=== PATIENT | female | born 1980 | race Caucasian/White ===

== ENCOUNTER 2018-01-08 21:47 | Emergency (ER) | payer OTHER, MEDICAID ==
[~2018-01-08] VITALS: Ht 147.3 cm; Wt 72.6 kg
[2018-01-08] MEDS ORDERED: LORAZEPAM1 MG PO (22:11)
[2018-01-08] MEDS ORDERED: GABAPENTIN800 MG PO (22:11)
[2018-01-08] MEDS ORDERED: 'CLONIDINE0.1 MG PO (22:12)
[2018-01-08] MEDS ORDERED: RISPERIDONE2 M2 PO (22:12)
[2018-01-08] MEDS ORDERED: BUSPIRONE HCL30 MG PO (22:12)
[2018-01-08] MEDS ORDERED: ATORVASTATIN CA40 M1 PO (22:13)
[2018-01-08] MEDS ORDERED: TRAZODONE50 MG PO (22:13)
[2018-01-08] MEDS ORDERED: VENLAFAXINE HY150 M2 PO (22:13)
== END 2018-01-08 23:31 | disposition home or self-care (01) ==
LOC: ED 21:47
DX: S93.491A Sprain of other ligament of right ankle, initial encounter (principal); F17.200 Nicotine dependence, unspecified, uncomplicated; Z88.2 Allergy status to sulfonamides; Z88.1 Allergy status to other antibiotic agents; Z88.6 Allergy status to analgesic agent; Z88.8 Allergy status to other drugs, medicaments and biological substances; Z79.899 Other long term (current) drug therapy; X58.XXXA Exposure to other specified factors, initial encounter; Y93.89 Activity, other specified; Y92.89 Other specified places as the place of occurrence of the external cause; Y99.8 Other external cause status

== ENCOUNTER 2022-12-16 13:25 | Emergency (ER) | payer OTHER ==
[~2022-12-16] VITALS: Ht 149.8 cm; Wt 68.5 kg
[~2022-12-16 13:25] MED LIST: 'CLONIDINE0.1 MG PO; ATORVASTATIN CA40 M1 PO; BUSPIRONE HCL30 MG PO; GABAPENTIN800 MG PO; LORAZEPAM1 MG PO; RISPERIDONE2 M2 PO; TRAZODONE50 MG PO; VENLAFAXINE HY150 M2 PO
[2022-12-16] MEDS ORDERED: MEDROL DOSEPAK4 MG PO (15:11)
[2022-12-16] MEDS ORDERED: ZANAFLEX4 M2 PO (15:11)
[2022-12-18] MEDS ORDERED: HYDROCODONE-AC1 EAC1 PO ×2 (15:08)
[2022-12-20] MEDS ORDERED: ROSUVASTATIN CA40 MG PO (12:35)
[2022-12-20] MEDS ORDERED: PERPHENAZINE4 M1 PO (12:38)
[2022-12-20] MEDS ORDERED: METFORMIN HYD1000 MG PO (12:39)
== END 2022-12-16 15:25 | disposition home or self-care (01) ==
LOC: ED 13:25
DX: S39.012A Strain of muscle, fascia and tendon of lower back, initial encounter (principal); Z88.2 Allergy status to sulfonamides; Z88.5 Allergy status to narcotic agent; Z88.8 Allergy status to other drugs, medicaments and biological substances; W01.0XXA Fall on same level from slipping, tripping and stumbling without subsequent striking against object, initial encounter; Y93.89 Activity, other specified; Y92.89 Other specified places as the place of occurrence of the external cause; Y99.8 Other external cause status

== ENCOUNTER 2022-12-18 10:35 | Emergency (ER) | payer OTHER ==
[~2022-12-18] VITALS: Ht 149.8 cm; Wt 68.5 kg
[~2022-12-18 10:35] MED LIST changes: +MEDROL DOSEPAK4 MG PO; +ZANAFLEX4 M2 PO
[2022-12-18 11:46] LABS: BASO % 0.3 % (0.0-1.0); EOS % 0.2 % (1.0-4.0); HEMATOCRIT 43.8 % (37.0-47.0); LYMPH # 1.7 10*3/uL (1.3-4.4); LYMPH % 17.8 % (27.0-41.0); MEAN CELL VOLUME 88.7 fl (81.0-99.0); MEAN CORPUSCULAR HGB 30.4 pg (27.0-31.0); MEAN CORPUSCULAR HGB CONC 34.2 g/dl (33.0-37.0); MEAN PLATELET VOLUME 9.6 fl (9.6-12.3); MONO # 0.3 10*3/uL (0.1-1.0); MONO % 3.2 % (3.0-9.0); NEUT # 7.5 10*3/uL (2.3-7.9); NEUT % 78.1 % (47.0-73.0); PLATELET COUNT AUTOMATED 214 10*3/uL (130-400); RED BLOOD COUNT 4.94 10*6/uL (4.10-5.10); RED CELL DISTRI WIDTH 11.9 % (0-14.5); WHITE BLOOD COUNT 9.6 10*3/uL (4.8-10.8)
[2022-12-18 12:01] LABS: BUN 18 mg/dl (9-23); CHLORIDE 98 mmol/L (98-107)
[2022-12-18] MEDS ORDERED: HYDROCODONE-AC1 EAC1 PO (15:08)
[2022-12-20] MEDS ORDERED: ROSUVASTATIN CA40 MG PO (12:35)
[2022-12-20] MEDS ORDERED: PERPHENAZINE4 M1 PO (12:38)
[2022-12-20] MEDS ORDERED: METFORMIN HYD1000 MG PO (12:39)
== END 2022-12-18 15:14 | disposition home or self-care (01) ==
LOC: ED 10:35
PROVIDERS: Internal Medicine
DX: S42.222A 2-part displaced fracture of surgical neck of left humerus, initial encounter for closed fracture (principal); Z88.2 Allergy status to sulfonamides; Z88.5 Allergy status to narcotic agent; Z88.8 Allergy status to other drugs, medicaments and biological substances; E11.65 Type 2 diabetes mellitus with hyperglycemia; E83.42 Hypomagnesemia; E11.40 Type 2 diabetes mellitus with diabetic neuropathy, unspecified; W01.0XXA Fall on same level from slipping, tripping and stumbling without subsequent striking against object, initial encounter; Y93.89 Activity, other specified; Y92.89 Other specified places as the place of occurrence of the external cause; Y99.8 Other external cause status

== ENCOUNTER 2022-12-24 01:08 | Inpatient (IN) | payer OTHER ==
[2022-12-20 12:51] VITALS: BP 111/65
[2022-12-24] VITALS (8 sets, daily range): BP systolic 121–153; BP diastolic 74–92
[~2022-12-24] VITALS: Ht 147.3 cm; Wt 68.5 kg
[~2022-12-24 01:08] MED LIST changes: +HYDROCODONE-AC1 EAC1 PO; +METFORMIN HYD1000 MG PO; +PERPHENAZINE4 M1 PO; +ROSUVASTATIN CA40 MG PO
[2022-12-24] MEDS ORDERED: HYDROCODONE-AC1 EAC1 PO (07:57)
[2022-12-24 14:27] LABS: BASO % 0.2 % (0.0-1.0); EOS # 0.1 10*3/uL (0.0-0.4); EOS % 0.5 % (1.0-4.0); HEMATOCRIT 32.3 % (37.0-47.0); LYMPH # 1.7 10*3/uL (1.3-4.4); LYMPH % 10.5 % (27.0-41.0); MEAN CELL VOLUME 93.1 fl (81.0-99.0); MEAN CORPUSCULAR HGB 30.3 pg (27.0-31.0); MEAN CORPUSCULAR HGB CONC 32.5 g/dl (33.0-37.0); MEAN PLATELET VOLUME 9.3 fl (9.6-12.3); MONO # 0.5 10*3/uL (0.1-1.0); MONO % 3.4 % (3.0-9.0); NEUT # 13.5 10*3/uL (2.3-7.9); NEUT % 84.5 % (47.0-73.0); PLATELET COUNT AUTOMATED 258 10*3/uL (130-400); RED BLOOD COUNT 3.47 10*6/uL (4.10-5.10); RED CELL DISTRI WIDTH 12.4 % (0-14.5)
[2022-12-24 14:35] LABS: ALKALINE PHOSPHATASE 82 U/L (46-116); BUN 24 mg/dl (9-23); CHLORIDE 107 mmol/L (98-107); POTASSIUM 4.4 mmol/L (3.4-5.1); SGPT/ALT 15 U/L (10-49); TOTAL PROTEIN 5.7 gm/dL (6.0-8.0)
[2022-12-24] MEDS ORDERED: LISINOPRIL10 M1 PO (14:48)
[2022-12-24] MEDS ORDERED: OZEMPIC0.25 MG/01 SQ (14:48)
[2022-12-24] MEDS ORDERED: NOVOLOG FL100 UNIT/2 SQ (14:49)
[2022-12-24] MEDS ORDERED: LANTUS SOL100 UNIT/1 SC (14:50)
[2022-12-24] MEDS ORDERED: PRILOSEC20 M1 PO (21:13)
[2022-12-25] VITALS: BP 143/90
[2022-12-25 03:28] LABS: BILIRUBIN Negative (Negative); BLOOD Negative (Negative); CLARITY Clear (Clear); COLOR Yellow (Yellow); GLUCOSE 2+ (Negative); KETONE Negative (Negative); LEUKO ESTERASE Negative (Negative); NITRITE Negative (Negative); PH 5.5 (4.5-8.0); SPECIFIC GRAVITY 1.015 (1.001-1.030)
[2022-12-25 03:44] LABS: WBC 0-2 wbc/hpf (0-5)
[2022-12-25 05:30] LABS: CHLORIDE 102 mmol/L (98-107); CHOLESTEROL 112 mg/dL (<200); FREE T4 1.75 ng/dl (0.89-1.76); LDL CHOLESTEROL 28 mg/dL (9-159); POTASSIUM 4.3 mmol/L (3.4-5.1); THYROID STIM HORMONE (HS) 0.628 uIU/ml (0.550-4.780); TRIGLYCERIDES 215 mg/dl (<150)
[2022-12-25 05:34] LABS: BUN 12 mg/dl (9-23)
[2022-12-25 06:26] LABS: BASO % 0.1 % (0.0-1.0); EOS # 0.1 10*3/uL (0.0-0.4); EOS % 0.4 % (1.0-4.0); LYMPH # 2.1 10*3/uL (1.3-4.4); LYMPH % 13.4 % (27.0-41.0); MEAN CELL VOLUME 91.9 fl (81.0-99.0); MEAN CORPUSCULAR HGB 30.4 pg (27.0-31.0); MEAN CORPUSCULAR HGB CONC 33.1 g/dl (33.0-37.0); MEAN PLATELET VOLUME 9.4 fl (9.6-12.3); MONO # 1.3 10*3/uL (0.1-1.0); MONO % 7.9 % (3.0-9.0); NEUT # 12.3 10*3/uL (2.3-7.9); NEUT % 77.5 % (47.0-73.0); PLATELET COUNT AUTOMATED 281 10*3/uL (130-400); RED BLOOD COUNT 3.81 10*6/uL (4.10-5.10); RED CELL DISTRI WIDTH 12.4 % (0-14.5); WHITE BLOOD COUNT 15.9 10*3/uL (4.8-10.8)
[2022-12-25 06:56] LABS: VITAMIN D, 25-HYDROXY 13.5 ng/mL (30-100)
[2022-12-25 08:00] VITALS: BP 145/65; BP 158/78
[2022-12-25] MEDS ORDERED: VITAMIN D350 MC2 PO (11:53)
[2022-12-25] MEDS ORDERED: LANTUS SOL100 UNIT/1 SC (11:53)
[2022-12-25] MEDS ORDERED: HYDROCODONE-AC1 EAC1 PO ×2 (11:53)
[2022-12-25 12:00] VITALS: BP 124/68
== END 2022-12-25 14:15 | disposition home or self-care (01) | DRG 493 ==
LOC: SDC 01:08 → 4E 13:32
PROVIDERS: Registered Nurse; ADMIT Student in an Organized Health Care Education/Training Program; ATTEND Student in an Organized Health Care Education/Training Program
PROC: 0PSD04Z Reposition Left Humeral Head with Internal Fixation Device, Open Approach (ICD-10-PCS; principal; 2022-12-24)
PROC: 3E0T3BZ Introduction of Anesthetic Agent into Peripheral Nerves and Plexi, Percutaneous Approach (ICD-10-PCS; 2022-12-24)
PROC: 3E0T33Z Introduction of Anti-inflammatory into Peripheral Nerves and Plexi, Percutaneous Approach (ICD-10-PCS; 2022-12-24)
DX: S42.222A 2-part displaced fracture of surgical neck of left humerus, initial encounter for closed fracture (principal); E44.0 Moderate protein-calorie malnutrition; G89.18 Other acute postprocedural pain; I10 Essential (primary) hypertension; E78.00 Pure hypercholesterolemia, unspecified; F41.9 Anxiety disorder, unspecified; K21.9 Gastro-esophageal reflux disease without esophagitis; F31.9 Bipolar disorder, unspecified; E78.5 Hyperlipidemia, unspecified; E11.65 Type 2 diabetes mellitus with hyperglycemia; F17.210 Nicotine dependence, cigarettes, uncomplicated; F41.1 Generalized anxiety disorder; F20.9 Schizophrenia, unspecified; Z88.2 Allergy status to sulfonamides; Z88.8 Allergy status to other drugs, medicaments and biological substances; Z88.6 Allergy status to analgesic agent; Z90.710 Acquired absence of both cervix and uterus; Z82.49 Family history of ischemic heart disease and other diseases of the circulatory system; Z81.8 Family history of other mental and behavioral disorders; Z68.31 Body mass index [BMI] 31.0-31.9, adult

== ENCOUNTER → 2023-01-10 | Outpatient (CLI) | payer OTHER ==
[~2023-01-10] MED LIST changes: +LANTUS SOL100 UNIT/1 SC; +LISINOPRIL10 M1 PO; +NOVOLOG FL100 UNIT/2 SQ; +OZEMPIC0.25 MG/01 SQ; +PRILOSEC20 M1 PO; +VITAMIN D350 MC2 PO
== END | disposition home or self-care (01) ==
LOC: ORTHO 00:05
PROVIDERS: ATTEND Orthopaedic Surgery
DX: S42.222D 2-part displaced fracture of surgical neck of left humerus, subsequent encounter for fracture with routine healing (principal); X58.XXXD Exposure to other specified factors, subsequent encounter

== ENCOUNTER → 2023-01-29 | Outpatient (CLI) | payer OTHER ==
[~2023-01-29] MED LIST changes: +CLINDAMYCIN HC300 MG PO
== END | disposition home or self-care (01) ==
LOC: ORTHO 00:38
PROVIDERS: ATTEND Orthopaedic Surgery
DX: S42.222D 2-part displaced fracture of surgical neck of left humerus, subsequent encounter for fracture with routine healing (principal); X58.XXXD Exposure to other specified factors, subsequent encounter

== ENCOUNTER → 2023-01-30 | Day surgery (SDC) | payer OTHER ==
[2023-01-29 14:27] VITALS: BP 140/96
[2023-01-29 15:27] LABS: BUN 14 mg/dl (9-23); CHLORIDE 99 mmol/L (98-107); POTASSIUM 3.9 mmol/L (3.4-5.1)
[2023-01-30] VITALS (9 sets, daily range): BP systolic 113–159; BP diastolic 53–100
[~2023-01-30] VITALS: Ht 147.3 cm; Wt 64.4 kg
[2023-01-31 11:07] LABS: ACID FAST SPEC PROCESSING Tissue Grinding (.)
== END | disposition home or self-care (01) ==
LOC: SDC 01-29 14:00
PROVIDERS: ATTEND Orthopaedic Surgery
DX: T81.49XA Infection following a procedure, other surgical site, initial encounter (principal); S42.222D 2-part displaced fracture of surgical neck of left humerus, subsequent encounter for fracture with routine healing; I10 Essential (primary) hypertension; M79.7 Fibromyalgia; E11.40 Type 2 diabetes mellitus with diabetic neuropathy, unspecified; F41.9 Anxiety disorder, unspecified; F32.A Depression, unspecified; F20.9 Schizophrenia, unspecified; F17.210 Nicotine dependence, cigarettes, uncomplicated; Z88.1 Allergy status to other antibiotic agents; Z88.5 Allergy status to narcotic agent; Z88.8 Allergy status to other drugs, medicaments and biological substances; X58.XXXD Exposure to other specified factors, subsequent encounter

== ENCOUNTER → 2023-02-14 | Outpatient (CLI) | payer OTHER | END | disposition home or self-care (01) | LOC: ORTHO 09:26 | PROVIDERS: ATTEND Orthopaedic Surgery | DX: S42.222D 2-part displaced fracture of surgical neck of left humerus, subsequent encounter for fracture with routine healing (principal); X58.XXXD Exposure to other specified factors, subsequent encounter ==

== ENCOUNTER → 2023-03-06 | Day surgery (SDC) | payer OTHER ==
[2023-03-05 10:14] VITALS: BP 155/105
[2023-03-05 11:22] LABS: BUN 8 mg/dl (9-23); CHLORIDE 102 mmol/L (98-107); POTASSIUM 3.8 mmol/L (3.4-5.1)
[~2023-03-06] VITALS: Ht 147.3 cm; Wt 64.4 kg
[~2023-03-06] MED LIST changes: +CEPHALEXIN500 M1 PO
[2023-03-06 09:30] VITALS: BP 154/94
[2023-03-06 11:35] VITALS: BP 128/77
[2023-03-06 11:50] VITALS: BP 163/94
[2023-03-06 12:10] VITALS: BP 150/89
[2023-03-07 12:07] LABS: ACID FAST SPEC PROCESSING Tissue Grinding (.)
== END | disposition home or self-care (01) ==
LOC: SDC 03-05 10:00
PROVIDERS: ATTEND Orthopaedic Surgery
DX: T81.49XA Infection following a procedure, other surgical site, initial encounter (principal); I10 Essential (primary) hypertension; E11.40 Type 2 diabetes mellitus with diabetic neuropathy, unspecified; M79.7 Fibromyalgia; F17.210 Nicotine dependence, cigarettes, uncomplicated; F31.9 Bipolar disorder, unspecified; F41.9 Anxiety disorder, unspecified; E78.00 Pure hypercholesterolemia, unspecified; Y83.8 Other surgical procedures as the cause of abnormal reaction of the patient, or of later complication, without mention of misadventure at the time of the procedure

== ENCOUNTER 2023-04-06 10:39 | Emergency (ER) | payer OTHER ==
[~2023-04-06] VITALS: Ht 152.4 cm; Wt 68.0 kg
[2023-04-06] MEDS ORDERED: PERCOCET 5-3251 EACH PO (11:45)
[2023-04-06] MEDS ORDERED: HYDROCODONE-AC1 EAC1 PO (13:16)
== END 2023-04-06 12:13 | disposition home or self-care (01) ==
LOC: ED 10:39
DX: S92.355A Nondisplaced fracture of fifth metatarsal bone, left foot, initial encounter for closed fracture (principal); F17.210 Nicotine dependence, cigarettes, uncomplicated; Z88.2 Allergy status to sulfonamides; Z88.1 Allergy status to other antibiotic agents; Z88.8 Allergy status to other drugs, medicaments and biological substances; Z91.018 Allergy to other foods; Z79.899 Other long term (current) drug therapy; Z90.710 Acquired absence of both cervix and uterus; Z90.49 Acquired absence of other specified parts of digestive tract; W18.39XA Other fall on same level, initial encounter; Y93.89 Activity, other specified; Y92.89 Other specified places as the place of occurrence of the external cause; Y99.8 Other external cause status

== ENCOUNTER → 2023-04-30 | Outpatient (CLI) | payer OTHER ==
[~2023-04-30] MED LIST changes: +PERCOCET 5-3251 EACH PO
== END | disposition home or self-care (01) ==
LOC: ORTHO 00:56
PROVIDERS: ATTEND Orthopaedic Surgery
DX: S42.222D 2-part displaced fracture of surgical neck of left humerus, subsequent encounter for fracture with routine healing (principal); X58.XXXD Exposure to other specified factors, subsequent encounter

== ENCOUNTER → 2023-11-03 | Outpatient (CLI) | payer OTHER | END | disposition home or self-care (01) | LOC: MAMMO 01:20 | PROVIDERS: ATTEND Family Medicine | DX: Z12.31 Encounter for screening mammogram for malignant neoplasm of breast (principal) ==

== ENCOUNTER → 2023-11-05 | Outpatient (CLI) | payer OTHER | END | disposition home or self-care (01) | LOC: ORTHO 01:14 | PROVIDERS: ATTEND Orthopaedic Surgery | DX: S42.222D 2-part displaced fracture of surgical neck of left humerus, subsequent encounter for fracture with routine healing (principal); X58.XXXD Exposure to other specified factors, subsequent encounter ==

== ENCOUNTER 2023-11-22 15:42 | Emergency (ER) | payer OTHER ==
[~2023-11-22] VITALS: Ht 147.3 cm; Wt 61.2 kg
[~2023-11-22 15:42] MED LIST changes: -OZEMPIC0.25 MG/01 SQ; +OZEMPIC1 MG/0.71 SQ
[2023-11-22] MEDS ORDERED: ATIVAN0.5 MG PO (15:51)
[2023-11-22] MEDS ORDERED: THORAZINE100 MG PO (15:53)
[2023-11-22 16:25] LABS: BILIRUBIN Negative (Negative); BLOOD 1+ (Negative); CLARITY Cloudy (Clear); COLOR Yellow (Yellow); GLUCOSE Negative (Negative); KETONE Trace (Negative); LEUKO ESTERASE Negative (Negative); NITRITE Negative (Negative); UROBILINOGEN 0.2 E.U./dl (0.0-1.0)
[2023-11-22 17:07] LABS: BACTERIA 1+; RBC 0-2 rbc/hpf (0-2); WBC 0-2 wbc/hpf (0-5)
[2023-11-22 17:27] LABS: BASO # 0.1 10*3/uL (0.0-0.1); BASO % 0.5 % (0.0-1.0); EOS # 0.3 10*3/uL (0.0-0.4); EOS % 2.6 % (1.0-4.0); HEMATOCRIT 45.5 % (37.0-47.0); LYMPH # 3.1 10*3/uL (1.3-4.4); LYMPH % 29.2 % (27.0-41.0); MEAN CELL VOLUME 89.7 fl (81.0-99.0); MEAN CORPUSCULAR HGB 30.2 pg (27.0-31.0); MEAN CORPUSCULAR HGB CONC 33.6 g/dl (33.0-37.0); MEAN PLATELET VOLUME 9.2 fl (9.6-12.3); MONO # 0.6 10*3/uL (0.1-1.0); MONO % 5.9 % (3.0-9.0); NEUT # 6.5 10*3/uL (2.3-7.9); NEUT % 61.5 % (47.0-73.0); PLATELET COUNT AUTOMATED 242 10*3/uL (130-400); RED BLOOD COUNT 5.07 10*6/uL (4.10-5.10); RED CELL DISTRI WIDTH 11.9 % (0-14.5); WHITE BLOOD COUNT 10.5 10*3/uL (4.8-10.8)
[2023-11-22 17:59] LABS: POTASSIUM 4.1 mmol/L (3.4-5.1)
[2023-11-22] MEDS ORDERED: PEPCID AC10 M2 PO (20:48)
== END 2023-11-22 21:07 | disposition home or self-care (01) ==
LOC: ED 15:42
PROVIDERS: Internal Medicine
DX: K29.70 Gastritis, unspecified, without bleeding (principal); R11.2 Nausea with vomiting, unspecified; I10 Essential (primary) hypertension; Z79.4 Long term (current) use of insulin; E11.40 Type 2 diabetes mellitus with diabetic neuropathy, unspecified; M79.7 Fibromyalgia; F31.9 Bipolar disorder, unspecified; F41.9 Anxiety disorder, unspecified; E78.00 Pure hypercholesterolemia, unspecified; Z88.2 Allergy status to sulfonamides; Z88.5 Allergy status to narcotic agent; Z91.018 Allergy to other foods; Z88.6 Allergy status to analgesic agent; Z88.8 Allergy status to other drugs, medicaments and biological substances; Z90.710 Acquired absence of both cervix and uterus; Z98.890 Other specified postprocedural states; F17.210 Nicotine dependence, cigarettes, uncomplicated

== ENCOUNTER 2024-03-09 17:18 | Emergency (ER) | payer OTHER ==
[~2024-03-09] VITALS: Ht 147.3 cm; Wt 61.2 kg
[~2024-03-09 17:18] MED LIST changes: +ATIVAN0.5 MG PO; +PEPCID AC10 M2 PO; +THORAZINE100 MG PO
[2024-03-09] MEDS ORDERED: ONDANSETRON4 MG SL (18:42)
[2024-03-09] MEDS ORDERED: Motrin,Rufen800 MG PO (18:42)
[2024-03-09] MEDS ORDERED: AMOX-CLAV 875-1 EACH PO (18:42)
[2024-03-09] MEDS ORDERED: Amoxicillin/Clavulanate Pota 875 MG TAB PO ONE (18:50)
[2024-03-09] MEDS ORDERED: Ondansetron Hydrochloride 4 MG TAB SL ONE (18:50)
[2024-03-09] MEDS ORDERED: Acetaminophen/Hydrocodone 5 MG/325 MG TABLET PO ONE (18:50)
== END 2024-03-09 19:00 | disposition home or self-care (01) ==
LOC: ED 17:18
DX: H66.92 Otitis media, unspecified, left ear (principal); R42 Dizziness and giddiness; E11.9 Type 2 diabetes mellitus without complications; E78.5 Hyperlipidemia, unspecified; I10 Essential (primary) hypertension; F31.9 Bipolar disorder, unspecified; F20.9 Schizophrenia, unspecified; F17.210 Nicotine dependence, cigarettes, uncomplicated; Z88.2 Allergy status to sulfonamides; Z88.5 Allergy status to narcotic agent; Z91.018 Allergy to other foods; Z88.8 Allergy status to other drugs, medicaments and biological substances; Z79.4 Long term (current) use of insulin; Z79.899 Other long term (current) drug therapy; Z98.890 Other specified postprocedural states; Z90.711 Acquired absence of uterus with remaining cervical stump

== ENCOUNTER → 2024-07-15 | Outpatient (CLI) | payer OTHER ==
[~2024-07-15] MED LIST changes: +AMOX-CLAV 875-1 EACH PO; +BARIUM SULFATE 98% 340 GM BOT PO ONE; +Motrin,Rufen800 MG PO; +ONDANSETRON4 MG SL
== END | disposition home or self-care (01) ==
LOC: RAD/SH 07-14 10:00
PROVIDERS: ATTEND Internal Medicine
DX: R13.10 Dysphagia, unspecified (principal)

== ENCOUNTER → 2024-09-13 | Day surgery (SDC) | payer OTHER ==
[~2024-09-13] VITALS: Ht 147.3 cm; Wt 59.0 kg
[~2024-09-13] MED LIST changes: -BARIUM SULFATE 98% 340 GM BOT PO ONE; +Lidocaine Hydrochloride 5 ML VIAL IV ONE; +PROPOFOL 200 MG/20 ML VIAL IV ONE; +fentaNYL CITRATE 100 MCG/2 ML VIAL IV ONE
[2024-09-13 09:03] VITALS: BP 141/72
== END | disposition home or self-care (01) ==
LOC: SDC 08-17 08:45
PROVIDERS: ATTEND Surgery
DX: Z12.11 Encounter for screening for malignant neoplasm of colon (principal); K21.9 Gastro-esophageal reflux disease without esophagitis; R13.10 Dysphagia, unspecified; Z86.0100 Personal history of colon polyps, unspecified; I10 Essential (primary) hypertension; E11.40 Type 2 diabetes mellitus with diabetic neuropathy, unspecified; M79.7 Fibromyalgia; F20.9 Schizophrenia, unspecified; F31.9 Bipolar disorder, unspecified; F41.9 Anxiety disorder, unspecified; E78.00 Pure hypercholesterolemia, unspecified; F17.210 Nicotine dependence, cigarettes, uncomplicated; Z88.1 Allergy status to other antibiotic agents; Z88.8 Allergy status to other drugs, medicaments and biological substances; Z79.84 Long term (current) use of oral hypoglycemic drugs; Z79.899 Other long term (current) drug therapy

== ENCOUNTER 2024-12-02 13:48 | Emergency (ER) | payer OTHER ==
[~2024-12-02] VITALS: Ht 147.3 cm; Wt 65.4 kg
[~2024-12-02 13:48] MED LIST changes: +ADMELOG100 UNIT/1 SQ; +ATIVAN2 M1 PO; +CLONIDINE0.2 MG PO; +LANTUS100 UNIT/1 SC; +LORAZEPAM2 MG PO; -Lidocaine Hydrochloride 5 ML VIAL IV ONE; +OMEPRAZOLE40 MG PO; -PROPOFOL 200 MG/20 ML VIAL IV ONE; +THORAZINE50 MG PO; +TIZANIDINE2 MG PO; -fentaNYL CITRATE 100 MCG/2 ML VIAL IV ONE
[2024-12-02] MEDS ORDERED: Acetaminophen/Hydrocodone 5 MG/325 MG TABLET PO ONE (14:05)
[2024-12-02] MEDS ORDERED: HYDROCODONE-AC1 EAC1 PO (15:00)
== END 2024-12-02 15:04 | disposition home or self-care (01) ==
LOC: ED 13:48
DX: S22.32XA Fracture of one rib, left side, initial encounter for closed fracture (principal); I10 Essential (primary) hypertension; M79.7 Fibromyalgia; E11.40 Type 2 diabetes mellitus with diabetic neuropathy, unspecified; F31.9 Bipolar disorder, unspecified; F41.9 Anxiety disorder, unspecified; E78.00 Pure hypercholesterolemia, unspecified; F14.10 Cocaine abuse, uncomplicated; F17.210 Nicotine dependence, cigarettes, uncomplicated; F12.90 Cannabis use, unspecified, uncomplicated; Z88.2 Allergy status to sulfonamides; Z88.5 Allergy status to narcotic agent; Z91.018 Allergy to other foods; Z88.6 Allergy status to analgesic agent; Z88.8 Allergy status to other drugs, medicaments and biological substances; Z90.710 Acquired absence of both cervix and uterus; Z98.890 Other specified postprocedural states; W00.2XXA Other fall from one level to another due to ice and snow, initial encounter; Y93.89 Activity, other specified; Y92.009 Unspecified place in unspecified non-institutional (private) residence as the place of occurrence of the external cause; Y99.8 Other external cause status

== ENCOUNTER → 2025-05-03 | Outpatient (CLI) | payer OTHER | END | disposition home or self-care (01) | LOC: MRI 04-26 10:00 | PROVIDERS: ATTEND Internal Medicine | DX: R47.9 Unspecified speech disturbances (principal) ==

== ENCOUNTER → 2025-05-06 | Outpatient (CLI) | payer OTHER ==
[~2025-05-06] MED LIST changes: +GADOTERATE MEGLUMINE 7.5 MMOL/15 ML VIAL IV ONE; +SODIUM CHLORIDE 0.9% 50 ML IV ONE
== END | disposition home or self-care (01) ==
LOC: MRI 04-27 13:00
PROVIDERS: ATTEND Internal Medicine
DX: R51.9 Headache, unspecified (principal); R47.9 Unspecified speech disturbances

== ENCOUNTER → 2025-06-16 | Outpatient (CLI) | payer OTHER ==
[~2025-06-16] MED LIST changes: -GADOTERATE MEGLUMINE 7.5 MMOL/15 ML VIAL IV ONE; -SODIUM CHLORIDE 0.9% 50 ML IV ONE
[2025-06-16 09:16] LABS: BILIRUBIN Negative (Negative); BLOOD Trace-Intact (Negative); CLARITY Clear (Clear); COLOR Yellow (Yellow); KETONE Negative (Negative); LEUKO ESTERASE Negative (Negative); NITRITE Negative (Negative); PH 6.5 (4.5-8.0); SPECIFIC GRAVITY >= 1.030 (1.001-1.030); UROBILINOGEN 1.0 E.U./dl (0.0-1.0)
[2025-06-16 09:24] LABS: BACTERIA TRACE; WBC 0-2 wbc/hpf (0-5)
[2025-06-16 09:39] LABS: BUN 15.0 mg/dl (9-23)
== END | disposition home or self-care (01) ==
LOC: LAB 08:36
PROVIDERS: ATTEND Nurse Practitioner Family
DX: M47.812 Spondylosis without myelopathy or radiculopathy, cervical region (principal); M43.12 Spondylolisthesis, cervical region; M54.2 Cervicalgia; M79.644 Pain in right finger(s); E11.65 Type 2 diabetes mellitus with hyperglycemia; N17.0 Acute kidney failure with tubular necrosis; M25.78 Osteophyte, vertebrae; Z79.899 Other long term (current) drug therapy

== ENCOUNTER → 2025-08-18 | Outpatient (CLI) | payer OTHER ==
[2025-08-18 13:37] LABS: BILIRUBIN Negative (Negative); BLOOD 1+ (Negative); CLARITY Clear (Clear); COLOR Yellow (Yellow); KETONE Negative (Negative); LEUKO ESTERASE Negative (Negative); NITRITE Negative (Negative); PH 5.5 (4.5-8.0); SPECIFIC GRAVITY >= 1.030 (1.001-1.030); UROBILINOGEN 0.2 E.U./dl (0.0-1.0)
[2025-08-18 13:59] LABS: BACTERIA TRACE; WBC 0-2 wbc/hpf (0-5); YEAST TRACE
[2025-08-18 14:22] LABS: BUN 20.0 mg/dl (9-23)
== END | disposition home or self-care (01) ==
LOC: LAB 13:09
PROVIDERS: ATTEND Nurse Practitioner Family
DX: E55.9 Vitamin D deficiency, unspecified (principal); N17.9 Acute kidney failure, unspecified; M54.9 Dorsalgia, unspecified